=== PATIENT | male | born 1960 | race Caucasian/White ===

== ENCOUNTER → 2018-02-14 | Outpatient (CLI) | payer OTHER ==
[~2018-02-14] MED LIST: ALPR1TAB3 PO; DVN80 PO; FRC PO; GABA-1220 PO; LRT5 PO; TERA5CAP PO
[2018-02-14 16:52] LABS: BASO % 0.6 %; BASO ABS # 0.03 K/uL (0-0.2); EOS % 2.2 %; EOS ABS # 0.12 K/uL (0-0.5); HEMATOCRIT 42.1 % (42-52); HEMOGLOBIN 14.4 g/dL (14.0-18.0); IG# 0.02 K/uL (0.00-0.02); LYMPH % 31.8 %; LYMPH ABS # 1.71 K/uL (1.2-3.4); MEAN CELL VOLUME 91.9 fL (80-100); MEAN CORPUSCULAR HEMOGLOBIN 31.4 pg (25-34); MEAN CORPUSCULAR HGB CONC 34.2 g/dl (32-36); MEAN PLATELET VOLUME 9.2 fL (7.4-10.4); MONO % 6.9 %; MONO ABS # 0.37 K/uL (0.11-0.59); NEUT % 58.1 %; NEUT ABS # 3.13 K/uL (1.4-6.5); PLATELET COUNT 274 K/uL (130-400); RED CELL DISTRIBUTION WIDTH CV 13.5 % (11.5-14.5); RED CELL DISTRIBUTION WIDTH SD 45.1 fL (36.4-46.3); WHITE BLOOD COUNT 5.38 K/uL (4.8-10.8)
[2018-02-14 17:23] LABS: ALBUMIN 4.1 gm/dl (3.4-5.0); ALT/SGPT 22 U/L (12-78); AST/SGOT 17 U/L (15-37); BLOOD UREA NITROGEN 12 mg/dl (7-18); CALCIUM 8.9 mg/dl (8.5-10.1); CARBON DIOXIDE 28 mmol/L (21-32); CREATININE 1.41 mg/dl (0.60-1.40); GLUCOSE 90 mg/dl (70-99); POTASSIUM 3.7 mmol/L (3.5-5.1); SODIUM 137 mmol/L (136-145)
[2018-02-14 17:35] LABS: ALKALINE PHOSPHATASE 46 U/L (45-117); CHOLESTEROL 226 mg/dl (0-200); LDL CHOLESTEROL CALCULATED 152 mg/dl; TOTAL PROTEIN 8.2 gm/dl (6.4-8.2)
[2018-02-15 07:35] LABS: HEMOGLOBIN A1C 5.5 % (4.5-5.6)
== END | disposition home or self-care (01) ==
LOC: C.LABPBG 15:37
PROVIDERS: ATTEND Internal Medicine
DX: Z00.00 Encounter for general adult medical examination without abnormal findings (principal); I10 Essential (primary) hypertension; Q28.2 Arteriovenous malformation of cerebral vessels; G89.4 Chronic pain syndrome; M17.10 Unilateral primary osteoarthritis, unspecified knee; F11.20 Opioid dependence, uncomplicated

== ENCOUNTER → 2018-03-02 | Outpatient (CLI) | payer OTHER ==
[2018-03-02 16:46] LABS: BASO % 0.4 %; BASO ABS # 0.02 K/uL (0-0.2); EOS % 3.3 %; EOS ABS # 0.16 K/uL (0-0.5); HEMATOCRIT 42.1 % (42-52); HEMOGLOBIN 14.7 g/dL (14.0-18.0); IG# 0.01 K/uL (0.00-0.02); LYMPH ABS # 2.11 K/uL (1.2-3.4); MEAN CELL VOLUME 91.1 fL (80-100); MEAN CORPUSCULAR HEMOGLOBIN 31.8 pg (25-34); MEAN CORPUSCULAR HGB CONC 34.9 g/dl (32-36); MEAN PLATELET VOLUME 9.2 fL (7.4-10.4); MONO % 7.9 %; MONO ABS # 0.39 K/uL (0.11-0.59); NEUT % 45.2 %; NEUT ABS # 2.22 K/uL (1.4-6.5); PLATELET COUNT 228 K/uL (130-400); RED CELL DISTRIBUTION WIDTH CV 13.3 % (11.5-14.5); RED CELL DISTRIBUTION WIDTH SD 44.4 fL (36.4-46.3); WHITE BLOOD COUNT 4.91 K/uL (4.8-10.8)
[2018-03-02 16:59] LABS: HEMOGLOBIN A1C 5.4 % (4.5-5.6)
[2018-03-02 17:26] LABS: ALBUMIN 4.1 gm/dl (3.4-5.0); ALKALINE PHOSPHATASE 39 U/L (45-117); ALT/SGPT 22 U/L (12-78); AST/SGOT 24 U/L (15-37); BLOOD UREA NITROGEN 13 mg/dl (7-18); CALCIUM 8.9 mg/dl (8.5-10.1); CARBON DIOXIDE 30 mmol/L (21-32); CHOLESTEROL 239 mg/dl (0-200); CREATININE 1.32 mg/dl (0.60-1.40); GLUCOSE 88 mg/dl (70-99); LDL CHOLESTEROL CALCULATED 142 mg/dl; POTASSIUM 3.9 mmol/L (3.5-5.1); SODIUM 135 mmol/L (136-145); TOTAL PROTEIN 7.9 gm/dl (6.4-8.2)
== END | disposition home or self-care (01) ==
LOC: C.LABPBG 15:52
PROVIDERS: ATTEND Internal Medicine
DX: Z00.00 Encounter for general adult medical examination without abnormal findings (principal); Q28.2 Arteriovenous malformation of cerebral vessels; R39.9 Unspecified symptoms and signs involving the genitourinary system; I10 Essential (primary) hypertension; F41.9 Anxiety disorder, unspecified